=== PATIENT | female | born 1945 | race Caucasian/White ===

== ENCOUNTER 2018-02-16 10:57 | Emergency (ER) | payer MEDICARE, BC ==
[2018-02-16 11:26] LABS: #Basophils 0.1 thou/uL (0.0-0.2); #Eosinphils 0.3 thou/uL (0.0-0.7); #Lymphocytes 1.7 thou/uL (1.20-3.40); #Monocytes 0.4 thou/uL (0.11-0.59); #Neutrophils 2.6 thou/uL (1.40-6.50); %Basophils 1.7 % (0.0-1.0); %Eosinophils 5.2 % (0.0-10.0); %Lymphocytes 34.2 % (21.0-51.0); %Monocytes 8.7 % (0.0-10.0); %Neutrophils 50.2 % (42.0-75.0); Hemoglobin 13.2 g/dL (12.0-16.0); Mean Corpuscular HGB CONC 33.7 g/dL (32.0-36.0); Mean Corpuscular Hemoglobin 28.8 pg (27.0-31.0); Mean Corpuscular Volume 85.3 fL (78.0-98.0); Mean Platelet Volume 8.7 fL (7.4-10.4); Platelet Count 262 thou/uL (130-400); RBC Distribution Width 12.2 % (11.5-14.5); Red Blood Cell (RBC) Count 4.57 mill/uL (4.20-5.40); White Blood Cell (WBC) Count 5.1 thou/uL (4.8-10.8)
[2018-02-16 11:54] LABS: ALT (SGPT) 16 U/L (8-55); AST (SGOT) 26 U/L (5-34); Albumin 4.2 g/dL (3.4-4.8); Alkaline Phosphatase 82 U/L (40-150); Anion Gap 13 mmol/L (10-20); BUN (Urea Nitrogen) 9 mg/dL (9.8-20.1); Bilirubin, Total 0.4 mg/dL (0.2-1.2); CK (CPK) 99 U/L (29-168); Calc. Creatinine Clearance 0 mL/min (70-130); Calcium 9.3 mg/dL (7.8-10.44); Carbon Dioxide 27 mmol/L (23-31); Chloride 101 mmol/L (98-107); Estimated GFR-MDRD 62; Globulin 3.4 g/dL (2.4-3.5); Glucose 94 mg/dL (83-110); Lipase 22 U/L (8-78); Potassium 4.1 mmol/L (3.5-5.1); Protein, Total 7.6 g/dL (6.0-8.3); Sodium 137 mmol/L (136-145); Troponin I Less than 0.010 ng/mL (< 0.028)
--- NOTE | 2018-02-16 13:29 | RAD ---
CHEST 1 VIEW: Date: 02/16/18 HISTORY: Chest palpitations. COMPARISON: None. FINDINGS: Lungs are clear. No pneumothorax or effusion. Cardiac silhouette and mediastinal contour within malcolm l limits. IMPRESSION: No acute intrathoracic abnormality. POS: [facility]
--- NOTE | 2018-02-19 12:25 | EKG ---
Test Reason : Blood Pressure : / mmHG Vent. Rate : 060 BPM Atrial Rate : 060 BPM P-R Int : 174 ms QRS Dur : 082 ms QT Int : 410 ms P-R-T Axes : 002 -31 003 degrees QTc Int : 410 ms Normal sinus rhythm Left axis deviation Abnormal ECG Confirmed by ELLEN BOBBY ([id number]), editor & co founder WAYLON CASTAÑEDA ([id number]) on 02/19/2018 12:24:55 PM Referred By: Confirmed By:ELLEN BOBBY
== END 2018-02-16 13:37 | disposition home or self-care (01) ==
LOC: ERS 10:57
DX: R00.2 Palpitations (principal); G35 Multiple sclerosis; Z79.82 Long term (current) use of aspirin; Z79.899 Other long term (current) drug therapy
CPT/HCPCS: 71045; 80053; 82550; 82553; 83690; 84443; 84484; 85025; 93005; 94760

== ENCOUNTER 2019-12-22 08:17 | Outpatient (CLI) | payer MEDICARE, BC ==
--- NOTE | 2019-12-22 09:41 | MRI ---
MRI Lumbar Spine Noncontrast: HISTORY: Difficulty walking and numbness in bilateral legs after sitting for an extended period of time. Histo ry of multiple sclerosis. COMPARISON: None FINDINGS: A 5 cm exophytic increased density lesion is seen at the superior pole right kidney which demonstrate s nonenhanced MR characteristics most compatible with a cyst. There is incomplete visualization of an area of increased T2-weighted signal intensity in the right upper quadrant above the level of the kidney. This could be related to the gallbladder, but this difficult to further assess or evaluated on this exam. Remaining retroperitoneal structures demonstrate a grossly normal nonenhanced CT appear ance. Conus medullaris is normal in morphology and terminates at the T12-L1 level. There is mild generalized heterogeneity of the bone marrow. L1-2: Mild disc osteophyte complex is present. This results in slight effacement of the thecal sac. N eural foramina are patent L2-3: There is no disc bulge or disc herniation. Central spinal canal and neural foramina are patent. L3-4: Prominent facet hypertrophic changes are present at this level. Central spinal canal and neural foramina are patent. L4-5: Mild disc osteophyte complex is present. There are facet hypertrophic changes present. Mild to moderate central spinal canal is present with minimal left-sided neural foraminal narrowing. The right neural foramen is patent. L5-S1: There is no disc bulge or disc herniation. Central spinal canal and neural foramina are patent . Facet degenerative changes are seen. IMPRESSION: 1. Findings likely attributable to dominant superior pole right renal cyst incompletely imaged. In ad dition, there is an area of increased T2-weighted signal intensity just superior to the right kidney which could be associated with the gallbladder, but this is unable to be further assessed as t here is motion through this region. This is incompletely evaluated, and right upper quadrant ultrasound is recommended for further evaluation. 2. Mild degenerative changes in the lumbar spine. No high-grade central canal or neural foraminal fortino rowing is present at any level.
== END 2019-12-22 08:18 | disposition home or self-care (01) ==
LOC: BICMRI 08:17
PROVIDERS: ATTEND Psychiatry & Neurology Neurology
DX: G35 Multiple sclerosis (principal); M47.816 Spondylosis without myelopathy or radiculopathy, lumbar region; R93.7 Abnormal findings on diagnostic imaging of other parts of musculoskeletal system
CPT/HCPCS: 72148

== ENCOUNTER 2020-08-16 13:58 | Outpatient (CLI) | payer MEDICARE, BC | END 2020-08-16 13:59 | disposition home or self-care (01) | LOC: BICMAMMO 13:58 | PROVIDERS: ATTEND Family Medicine | DX: N64.4 Mastodynia (principal) | CPT/HCPCS: 77066; G0279 ==